=== PATIENT | female | born 1985 | race African-American/Black ===

== ENCOUNTER 2017-06-08 10:11 | Emergency (ER) | payer SELFPAY ==
[~2017-06-08] VITALS: Ht 157.5 cm; Wt 63.5 kg
--- NOTE | 2017-06-08 10:30 | NUR ---
PATIENT TO ED DT VAGINAL BLEEDING X 9 DAYS, REPORTED LOWER ABDOMINAL CRAMPS, 2/10. USED 0 PAD TODAY.
[2017-06-08 10:59] LABS: BASOPHILS % (AUTO) 0.3 % (0.0-2.0); EOSINOPHILS # (AUTO) 0.1 /CMM (0.0-0.7); EOSINOPHILS % (AUTO) 0.8 % (0.0-6.0); HEMOGLOBIN 11.7 g/dL (11.5-14.8); LYMPHOCYTES # (AUTO) 1.1 /CMM (0.8-4.8)
[2017-06-08 11:00] LABS: APPEARANCE,URINE Cloudy (CLEAR); BILIRUBIN,URINE Negative (NEGATIVE); BLOOD, URINE Large Ery/uL (NEGATIVE); KETONES,URINE Negative (NEGATIVE); LEUKOCYTE ESTERASE ,URINE Negative (NEGATIVE); NITRITE, URINE Positive (NEGATIVE); PROTEIN,URINE 30 mg/dl (NEGATIVE); UGLUCOSE Negative (NEGATIVE)
[2017-06-08 11:01] LABS: HEMATOCRIT 35 % (33-45); LYMPHOCYTES % (AUTO) 16.5 % (20.0-44.0); MEAN CORPUSCULAR HEMOGLOBIN 30 PG (26.0-33.0); MEAN CORPUSCULAR HGB CONC 34 g/dl (31.0-36.0); MEAN CORPUSCULAR VOLUME 90 fL (82-100); MONOCYTES # (AUTO) 0.2 /CMM (0.1-1.30); MONOCYTES % (AUTO) 3.5 % (2.0-12.0); NEUTROPHILS # (AUTO) 5.2 /CMM (1.8-8.9); NEUTROPHILS % (AUTO) 78.9 % (43.0-81.0); PLATELET COUNT (AUTO) 258 /CMM (150-450); RDW COEFFICIENT OF VARIATION 12.8 (11.5-15.0); RED BLOOD CELL COUNT(AUTO) 3.88 MIL/uL (4.0-5.2); WHITE BLOOD COUNT (AUTO) 6.6 K/uL (4.3-11.0)
[2017-06-08 11:03] LABS: COLOR,URINE Dark Yellow (YELLOW)
[2017-06-08 11:08] LABS: CALCIUM, SERUM 9.3 mg/dL (8.5-10.1); CREATININE 0.7 mg/dL (0.6-1.3); POTASSIUM 4.3 mmol/L (3.5-5.1)
[2017-06-08 11:10] LABS: BACTERIA,URINE Many /HPF (None Seen); RBC,URINE 80-100 /HPF (0-2); SQUAMOUS EPITHELIAL CELL,UR Few /HPF (None Seen)
[2017-06-08 11:12] LABS: INR 0.9 (0.87-1.13); PROTHROMBIN TIME 9.4 SECS (9.5-12.7)
[2017-06-08 13:38] VITALS: BP 110/68
--- NOTE | 2017-06-08 14:06 | NUR ---
PT. VERBALIZED UNDERSTANDING OF AFTERCARE INSTRUCTIONS.Patient discharged to home in stable condition. Written and verbal after care instructions given. Patient verbalizes understanding of instruction.
== END 2017-06-08 13:40 | disposition home or self-care (01) ==
LOC: EDSEX 10:13 → ER 10:13
DX: O20.0 Threatened abortion (principal); N39.0 Urinary tract infection, site not specified; G89.29 Other chronic pain
CPT/HCPCS: 36415; 76856; 80048; 81001; 84443; 84702; 84703; 85025; 85730; 87086; 99285; A4606; Z7610; 81000-TC

== ENCOUNTER 2021-09-05 09:05 | Emergency (ER) | payer MEDICAID ==
[~2021-09-05] VITALS: Ht 160 cm; Wt 61.2 kg
--- NOTE | 2021-09-05 09:08 | NUR ---
TO ER BED 3, [facility] C/O L ELBOW PAIN " FELL 6HRS AGO, GOING DOWN THE STAIRS AND TRIPPED, PATIENT ADMITS TO BEING INTOXICATED WHEN SHE FELL, AAOX3, BREATHING EVEN AND NON LABORED, AWAITING MD HELM
--- NOTE | 2021-09-05 09:55 | NUR ---
SEEN AND EXAMINED BY DR BEACH
[2021-09-05] MEDS ORDERED: oxyCODONE/APAP (5/325 MG) 1 UDTAB TABLET PO ONE (10:00)
[2021-09-05] MEDS ORDERED: oxyCODONE/APAP (5/325 MG) 1 UDTAB TABLET ONE ×2 (10:02→10:05)
--- NOTE | 2021-09-05 10:08 | NUR ---
MOTION PICTURE PHOTOGRAPHER AT BEDSIDE
[2021-09-05] MEDS ORDERED: PROPOFOL 20 ML IV ONE (10:25)
[2021-09-05] MEDS ORDERED: IV NS 0.9% 1,000 ML IV ONE (10:30)
[2021-09-05] MEDS ORDERED: PROPOFOL 1,000 MG/100 ML BOTTLE IV ONE (10:30)
--- NOTE | 2021-09-05 10:55 | NUR ---
LUZ BOYFRIEND [phone]
--- NOTE | 2021-09-05 11:08 | NUR ---
PERFORMED MODERATE SEDATION FOR LEFT ELBOW REDUCTION WITH DR BEACH WITH RT AT BED SIDE: GIVEN PROPOFOL 30MG AT 1102, PT STILL AWAKE GIVEN PROPOFOL 20MG AT 1103, PT STILL AWAKE GIVEN PROPOFOL 20MG AT 1104, STARTED REDUCTION 1105 REDUCTION DONE, CALLED VULNERABILITY ASSESSMENT ANALYST FOR XRAY
[2021-09-05] MEDS ORDERED: PROPOFOL 200 MG/20 ML VIAL IV ONE (11:30)
[2021-09-05] MEDS ORDERED: IV NS 0.9% 500 ML BAG IV ONE (11:30)
--- NOTE | 2021-09-05 11:46 | NUR ---
CALLED DR. JOSHI FOR ORTHO CONSULT.
[2021-09-05 12:41] VITALS: BP 131/82
--- NOTE | 2021-09-05 13:00 | NUR ---
IV removed. Catheter intact and site benign. Pressure and 4x4 applied to site. No bleeding noted.
--- NOTE | 2021-09-05 13:05 | NUR ---
ORTHO SPEAKING WITH DR. BEACH.
[2021-09-05] MEDS ORDERED: HYDR-4303 PO ×2 (13:07→13:09)
[2021-09-05] MEDS ORDERED: IBUP-1957 PO (13:07)
--- NOTE | 2021-09-05 13:10 | NUR ---
PATIENT ELOPED IN STABLE CONDITION AFTER BEING TOLD OF THE IMPORTANCE OF WAITING FOR CT RESULTS. WHEN CT RESULTS WERE READ, PT WAS NO LONGER IN HER ROOM. PATIENT WAS CALLED TO COME BACK, DR BEACH ATTEMPTED TO SPEAK TO HER AND EXPLAIN THE IMPORTANCE OF FOLLOWING UP WITH ORTHOPEDIC SURGEON. PATIENT HUNG UP BEFORE DR BEACH WAS ABLE TO THOROUGHLY EXPLAIN. ATTEMPTED TO CALL BACK PATIENT SEVERAL TIMES, ATTEMPTED TO CALL BOYFRIEND. LEFT A MESSAGE ON THE PATIENT'S PHONE, STRESSING THE IMPORTANCE TO SEE AN ORTHOPEDIC SURGEON. SOON POSSIBLE AND GAVE HER REFERRAL INFORMATION (NICHOLE JOSEPH TEL# [phone] ADDRESS: [address] [place] [id number] AND IMPORTANCE OF COMING BACK TO THE HOSPITAL FOR PRESCRIPTION AND IMAGING CD.
== END 2021-09-05 13:33 | disposition left against medical advice (07) ==
LOC: ER 09:07
DX: S52.042A Displaced fracture of coronoid process of left ulna, initial encounter for closed fracture (principal); G89.29 Other chronic pain; Z79.891 Long term (current) use of opiate analgesic; Z79.1 Long term (current) use of non-steroidal anti-inflammatories (NSAID); Z60.2 Problems related to living alone; W10.9XXA Fall (on) (from) unspecified stairs and steps, initial encounter; Y93.89 Activity, other specified; Y92.89 Other specified places as the place of occurrence of the external cause; Y99.8 Other external cause status
CPT/HCPCS: 29105; 73030; 73070; 73080; 73110; 73200; 96361; 96374; 99284; J2704; J7030